=== PATIENT | male | born 1945 | race African-American/Black ===

== ENCOUNTER 2021-08-12 17:00 | Inpatient (IN) | payer MEDICARE, MEDICAID ==
[~2021-08-12] VITALS: Ht 172.7 cm; Wt 73.0 kg
[2021-08-12 17:39] LABS: BASOPHILS % 0.5 % (0.0-2.0); EOSINOPHILS % 3.9 % (0.0-5.0); HEMATOCRIT. 39.7 % (42.0-52.0); HEMOGLOBIN. 13.5 g/dL (14.0-18.0); LYMPHOCYTES % 12.2 % (20.0-50.0); MEAN CORPUSCULAR HEMOGLOBIN 29.1 pg (28.0-32.0); MEAN CORPUSCULAR VOLUME 85.8 fL (80.0-94.0); MEAN PLATELET VOLUME 8.7 fl (7.4-10.4); MONOCYTES % 6.3 % (2.0-8.0); NEUTROPHILS % 77.1 % (40.0-76.0); PLATELET 119 x1000/uL (130-400); RED BLOOD CELL COUNT 4.63 mill/uL (4.7-6.1); RED CELL DISTRIBUTION WIDTH 14.5 % (11.6-14.6)
[2021-08-12 17:49] LABS: CHLORIDE 106 mEq/L (98-107)
[2021-08-12] MEDS ORDERED: IOHEXOL-350 100 ML BOTTLE ONE (17:51)
[2021-08-12 17:52] LABS: ETHANOL BLOOD < 10 mg/dL
[2021-08-12 17:52] LABS: CLARITY URINE CLEAR (CLEAR); COLOR URINE YELLOW (YELLOW); KETONES URINE NEGATIVE (NEGATIVE); LEUKOCYTE ESTERASE URINE NEGATIVE (NEGATIVE); NITRITE URINE NEGATIVE (NEGATIVE); OCCULT BLOOD URINE TRACE (NEGATIVE); PROTEIN URINE NEGATIVE (NEGATIVE); SPECIFIC GRAVITY URINE 1.032 (1.005-1.030); UROBILINOGEN URINE 0.2 E.U./dL (0.2-1.0)
[2021-08-12 18:08] LABS: *AMPHETAMINES SCREEN URINE PRESUMTIVE POSITIVE (NEGATIVE); *BARBITURATES SCREEN URINE NEGATIVE (NEGATIVE); *BENZODIAZEPINES SCREEN URINE NEGATIVE (NEGATIVE)
[2021-08-12 18:09] LABS: *COCAINE SCREEN URINE PRESUMTIVE POSITIVE (NEGATIVE); CANNABINOID URINE SCREEN NEGATIVE (NEGATIVE); METHADONE URINE SCREEN NEGATIVE (NEGATIVE); OPIATES URINE SCREEN NEGATIVE (NEGATIVE); PHENCYCLIDINE URINE SCREEN NEGATIVE (NEGATIVE)
[2021-08-12] MEDS ORDERED: SODIUM CHLORIDE 0.9% 500 ML IV ONE (19:30)
[2021-08-12] MEDS ORDERED: ASPIRIN 81MG TABLET PO ONE (20:30)
[2021-08-12] MEDS ORDERED: CEFTRIAXONE 1 G PREMIX 50 ML IV ONE (20:30)
[2021-08-12] MEDS ORDERED: CLOPIDOGREL 75MG TABLET PO ONE (20:30)
[2021-08-12] MEDS ORDERED: AZITHROMYCIN 500MG/250ML 250 ML IV ONE (20:30)
[2021-08-13] VITALS: BP 157/95
[2021-08-13 00:36] VITALS: BP 157/95
[2021-08-13] MEDS ORDERED: DEXTROSE 50% WATER 50ML SYRINGE IV PRN (01:15)
[2021-08-13] MEDS ORDERED: CLONIDINE 0.1MG TABLET PO PRN (01:15)
[2021-08-13] MEDS ORDERED: ACETAMINOPHEN 325MG TABLET PO PRN (01:45)
[2021-08-13] MEDS: DEXT 5%/0.45% NACL KCL 20MEQ/L 1,000 ML IV SCH ×2 (05:39→19:25)
[2021-08-13] MEDS: NITROGLYCERIN OINT 1GM/INCH UDPKT TD SCH ×3 (05:39→19:20)
[2021-08-13] MEDS: BLOOD SUGAR DIAGNOSTIC STRIP TEST SCH ×4 (06:26→20:02)
[2021-08-13 08:00] VITALS: BP 179/109
[2021-08-13 08:14] LABS: CHLORIDE 107 mEq/L (98-107)
[2021-08-13] MEDS: INSULIN LISPRO 100 UNITS/ML SUBCUT SCH ×4 (08:20→20:39)
[2021-08-13 08:22] LABS: BASOPHILS % 0.5 % (0.0-2.0); EOSINOPHILS % 4.9 % (0.0-5.0); HEMATOCRIT. 41.1 % (42.0-52.0); HEMOGLOBIN. 14.2 g/dL (14.0-18.0); LYMPHOCYTES % 20.3 % (20.0-50.0); MEAN CORPUSCULAR HEMOGLOBIN 29.5 pg (28.0-32.0); MEAN CORPUSCULAR VOLUME 85.3 fL (80.0-94.0); MEAN PLATELET VOLUME 8.6 fl (7.4-10.4); MONOCYTES % 8.2 % (2.0-8.0); NEUTROPHILS % 66.1 % (40.0-76.0); PLATELET 140 x1000/uL (130-400); RED BLOOD CELL COUNT 4.82 mill/uL (4.7-6.1); RED CELL DISTRIBUTION WIDTH 14.4 % (11.6-14.6)
[2021-08-13 08:30] LABS: LDL CHOLESTEROL 74 mg/dL (5-100)
[2021-08-13 08:32] LABS: HDL CHOLESTEROL 60 mg/dL (40-59)
[2021-08-13] MEDS: HEPARIN 5000 UNITS/ML VIAL SUBCUT SCH ×2 (09:53→21:27)
[2021-08-13 12:00] VITALS: BP 154/103
[2021-08-13] MEDS: ASPIRIN 325MG EC TABLET PO SCH (13:52)
[2021-08-13] MEDS: CARVEDILOL 12.5MG TABLET PO SCH ×2 (13:53→21:27)
[2021-08-13] MEDS: CLOPIDOGREL 75MG TABLET PO SCH (14:10)
[2021-08-13 16:00] VITALS: BP 125/83
[2021-08-13 20:00] VITALS: BP 120/75
[2021-08-13] MEDS: ATORVASTATIN CALCIUM 40MG TABLET PO SCH (21:27)
[2021-08-14] VITALS: BP 109/61
[2021-08-14 04:00] VITALS: BP 110/70
[2021-08-14] MEDS: BLOOD SUGAR DIAGNOSTIC STRIP TEST SCH ×4 (05:11→20:12)
[2021-08-14] MEDS: NITROGLYCERIN OINT 1GM/INCH UDPKT TD SCH ×5 (05:40→23:56)
[2021-08-14] MEDS: INSULIN LISPRO 100 UNITS/ML SUBCUT SCH ×4 (05:49→21:00)
[2021-08-14 08:00] VITALS: BP 107/81
[2021-08-14] MEDS: HEPARIN 5000 UNITS/ML VIAL SUBCUT SCH ×2 (08:58→22:08)
[2021-08-14] MEDS: ASPIRIN 325MG EC TABLET PO SCH (08:59)
[2021-08-14] MEDS: CARVEDILOL 12.5MG TABLET PO SCH ×2 (08:59→22:09)
[2021-08-14] MEDS: CLOPIDOGREL 75MG TABLET PO SCH (08:59)
[2021-08-14] MEDS: DEXT 5%/0.45% NACL KCL 20MEQ/L 1,000 ML IV SCH (09:47)
[2021-08-14 12:00] VITALS: BP 113/65
[2021-08-14 16:00] VITALS: BP 103/69
[2021-08-14 20:00] VITALS: BP 138/82
[2021-08-14] MEDS: ATORVASTATIN CALCIUM 40MG TABLET PO SCH (22:09)
[2021-08-15] VITALS: BP 98/78
[2021-08-15] MEDS: DEXT 5%/0.45% NACL KCL 20MEQ/L 1,000 ML IV SCH ×3 (00:30→20:57)
[2021-08-15 05:00] VITALS: BP 115/81
[2021-08-15] MEDS: BLOOD SUGAR DIAGNOSTIC STRIP TEST SCH ×4 (05:34→20:56)
[2021-08-15] MEDS: NITROGLYCERIN OINT 1GM/INCH UDPKT TD SCH ×3 (05:34→17:37)
[2021-08-15] MEDS: INSULIN LISPRO 100 UNITS/ML SUBCUT SCH ×4 (05:37→20:57)
[2021-08-15 08:11] VITALS: BP 131/89
[2021-08-15] MEDS: HEPARIN 5000 UNITS/ML VIAL SUBCUT SCH ×2 (08:32→20:56)
[2021-08-15] MEDS: ASPIRIN 81MG TABLET PO SCH (08:32)
[2021-08-15] MEDS: CARVEDILOL 12.5MG TABLET PO SCH ×2 (08:32→20:56)
[2021-08-15] MEDS: CLOPIDOGREL 75MG TABLET PO SCH (08:32)
[2021-08-15 11:43] VITALS: BP 119/76
[2021-08-15] MEDS ORDERED: ASPI-1497 MT (15:52)
[2021-08-15] MEDS ORDERED: CLOP-31 MT (15:52)
[2021-08-15] MEDS ORDERED: HYDR-4134 MT (15:52)
[2021-08-15] MEDS ORDERED: ATOR80TA MT (15:52)
[2021-08-15 16:00] VITALS: BP 115/75
[2021-08-15 20:00] VITALS: BP 105/72
[2021-08-15] MEDS: ATORVASTATIN CALCIUM 40MG TABLET PO SCH (20:55)
[2021-08-16] VITALS: BP 141/36
[2021-08-16] MEDS: NITROGLYCERIN OINT 1GM/INCH UDPKT TD SCH ×4 (00:52→18:06)
[2021-08-16 04:00] VITALS: BP 136/67
[2021-08-16] MEDS: BLOOD SUGAR DIAGNOSTIC STRIP TEST SCH ×4 (06:09→21:12)
[2021-08-16] MEDS: INSULIN LISPRO 100 UNITS/ML SUBCUT SCH ×4 (06:10→21:00)
[2021-08-16 08:00] VITALS: BP 123/79
[2021-08-16] MEDS: CLOPIDOGREL 75MG TABLET PO SCH (08:59)
[2021-08-16] MEDS: HEPARIN 5000 UNITS/ML VIAL SUBCUT SCH ×2 (08:59→21:17)
[2021-08-16] MEDS: ASPIRIN 81MG TABLET PO SCH (08:59)
[2021-08-16] MEDS: CARVEDILOL 12.5MG TABLET PO SCH ×2 (09:00→21:00)
[2021-08-16 12:00] VITALS: BP 139/61
[2021-08-16] MEDS: DEXT 5%/0.45% NACL KCL 20MEQ/L 1,000 ML IV SCH (12:40)
[2021-08-16 16:00] VITALS: BP 127/67
[2021-08-16 20:00] VITALS: BP 101/65
[2021-08-16] MEDS: ATORVASTATIN CALCIUM 40MG TABLET PO SCH (21:15)
[2021-08-17] VITALS: BP 96/43
[2021-08-17] MEDS: DEXT 5%/0.45% NACL KCL 20MEQ/L 1,000 ML IV SCH ×2 (03:56→14:28)
[2021-08-17 04:00] VITALS: BP 101/58
[2021-08-17] MEDS: NITROGLYCERIN OINT 1GM/INCH UDPKT TD SCH ×4 (06:00→18:15)
[2021-08-17] MEDS: INSULIN LISPRO 100 UNITS/ML SUBCUT SCH ×4 (06:52→21:00)
[2021-08-17] MEDS: BLOOD SUGAR DIAGNOSTIC STRIP TEST SCH ×4 (06:52→21:00)
[2021-08-17 08:00] VITALS: BP 110/75
[2021-08-17] MEDS: CARVEDILOL 12.5MG TABLET PO SCH ×2 (09:00→22:24)
[2021-08-17] MEDS: HEPARIN 5000 UNITS/ML VIAL SUBCUT SCH ×2 (09:39→22:22)
[2021-08-17] MEDS: ASPIRIN 81MG TABLET PO SCH (09:39)
[2021-08-17] MEDS: CLOPIDOGREL 75MG TABLET PO SCH (09:39)
[2021-08-17 12:00] VITALS: BP 120/75
[2021-08-17] MEDS ORDERED: NALOXONE HCL 0.4MG/ML VIAL IV PRN (15:45)
[2021-08-17 16:00] VITALS: BP 127/74
[2021-08-17 17:03] LABS: BASOPHILS % 0.8 % (0.0-2.0); EOSINOPHILS % 8.2 % (0.0-5.0); HEMATOCRIT. 38.9 % (42.0-52.0); HEMOGLOBIN. 13.1 g/dL (14.0-18.0); LYMPHOCYTES % 22.6 % (20.0-50.0); MEAN CORPUSCULAR HEMOGLOBIN 28.9 pg (28.0-32.0); MEAN PLATELET VOLUME 8.1 fl (7.4-10.4); MONOCYTES % 8.2 % (2.0-8.0); NEUTROPHILS % 60.2 % (40.0-76.0); PLATELET 132 x1000/uL (130-400); RED BLOOD CELL COUNT 4.53 mill/uL (4.7-6.1); RED CELL DISTRIBUTION WIDTH 14.4 % (11.6-14.6)
[2021-08-17 17:08] LABS: CHLORIDE 109 mEq/L (98-107)
[2021-08-17 20:00] VITALS: BP 108/78
[2021-08-17] MEDS: HYDROCODONE/ACETAMINOPHEN 5/325MG TABLET PO PRN (22:23)
[2021-08-17] MEDS: ATORVASTATIN CALCIUM 40MG TABLET PO SCH (22:23)
[2021-08-18] VITALS: BP 87/51
[2021-08-18] MEDS: NITROGLYCERIN OINT 1GM/INCH UDPKT TD SCH ×4 (00:47→16:51)
[2021-08-18 04:00] VITALS: BP 101/63
[2021-08-18] MEDS: BLOOD SUGAR DIAGNOSTIC STRIP TEST SCH ×4 (05:41→21:31)
[2021-08-18] MEDS: INSULIN LISPRO 100 UNITS/ML SUBCUT SCH ×4 (05:55→21:00)
[2021-08-18] MEDS: ASPIRIN 81MG TABLET PO SCH (07:56)
[2021-08-18] MEDS: CLOPIDOGREL 75MG TABLET PO SCH (07:56)
[2021-08-18] MEDS: HYDROCODONE/ACETAMINOPHEN 5/325MG TABLET PO PRN (07:57)
[2021-08-18] MEDS: CARVEDILOL 12.5MG TABLET PO SCH ×2 (07:57→21:31)
[2021-08-18] MEDS: HEPARIN 5000 UNITS/ML VIAL SUBCUT SCH ×2 (07:58→21:30)
[2021-08-18 08:38] VITALS: BP 119/69
[2021-08-18 12:00] VITALS: BP 100/57
[2021-08-18 16:00] VITALS: BP 104/69
[2021-08-18] MEDS: ATORVASTATIN CALCIUM 40MG TABLET PO SCH (21:30)
[2021-08-19 04:00] VITALS: BP 114/72
[2021-08-19] MEDS: NITROGLYCERIN OINT 1GM/INCH UDPKT TD SCH ×4 (06:20→18:00)
[2021-08-19] MEDS: INSULIN LISPRO 100 UNITS/ML SUBCUT SCH ×4 (06:20→20:39)
[2021-08-19] MEDS: BLOOD SUGAR DIAGNOSTIC STRIP TEST SCH ×4 (06:20→20:39)
[2021-08-19 08:00] VITALS: BP 102/62
[2021-08-19] MEDS: CARVEDILOL 12.5MG TABLET PO SCH ×2 (09:00→20:24)
[2021-08-19] MEDS: CLOPIDOGREL 75MG TABLET PO SCH (09:07)
[2021-08-19] MEDS: ASPIRIN 81MG TABLET PO SCH (09:07)
[2021-08-19] MEDS: HEPARIN 5000 UNITS/ML VIAL SUBCUT SCH ×2 (09:07→20:24)
[2021-08-19 12:00] VITALS: BP 100/68
[2021-08-19 16:00] VITALS: BP 95/60
[2021-08-19 16:09] VITALS: BP 101/68
[2021-08-19] MEDS ORDERED: NA PHOS,M-B/NA PHOS,DI-BA ENEMA 118ML PR NR (17:00)
[2021-08-19] MEDS ORDERED: LACTULOSE 20G/30ML UDC PO NR (17:00)
[2021-08-19] MEDS ORDERED: BISACODYL 5MG TABLET PO NR (17:00)
[2021-08-19] MEDS ORDERED: DOCUSATE SODIUM 250MG CAPSULE PO NR (17:00)
[2021-08-19 20:00] VITALS: BP 118/75
[2021-08-19] MEDS: ATORVASTATIN CALCIUM 40MG TABLET PO SCH (20:23)
[2021-08-20] VITALS: BP 120/76
[2021-08-20 04:00] VITALS: BP 105/69
[2021-08-20] MEDS: NITROGLYCERIN OINT 1GM/INCH UDPKT TD SCH ×2 (05:07)
[2021-08-20] MEDS: BLOOD SUGAR DIAGNOSTIC STRIP TEST SCH (06:18)
[2021-08-20] MEDS: INSULIN LISPRO 100 UNITS/ML SUBCUT SCH (06:18)
== END 2021-08-20 10:20 | DRG 65 ==
LOC: ER 17:00 → EDBEDREQSVC 18:25 → EDBEDREQTM 18:25 → EDBEDREQ 18:25 → 8WST 20:31 → EDBEDREQTM 20:59 → EDBEDREQ 20:59 → ENRESERV 22:37
PROVIDERS: ADMIT Internal Medicine; ATTEND Internal Medicine
PROC: 4A10X4Z Monitoring of Central Nervous Electrical Activity, External Approach (ICD-10-PCS; principal; 2021-08-16)
DX: I63.9 Cerebral infarction, unspecified (principal); G81.94 Hemiplegia, unspecified affecting left nondominant side; I42.0 Dilated cardiomyopathy; I10 Essential (primary) hypertension; F14.10 Cocaine abuse, uncomplicated; F15.10 Other stimulant abuse, uncomplicated; I25.10 Atherosclerotic heart disease of native coronary artery without angina pectoris; R29.707 NIHSS score 7; D64.9 Anemia, unspecified; R47.1 Dysarthria and anarthria; E11.9 Type 2 diabetes mellitus without complications; G89.29 Other chronic pain; Z20.822 Contact with and (suspected) exposure to COVID-19; F17.210 Nicotine dependence, cigarettes, uncomplicated; Z79.899 Other long term (current) drug therapy; Z86.73 Personal history of transient ischemic attack (TIA), and cerebral infarction without residual deficits; Z95.1 Presence of aortocoronary bypass graft
CPT/HCPCS: 36415; 70496; 70498; 70551; 71045; 80048; 80053; 80061; 80305; 80320; 81003; 82962; 83036; 83605; 84484; 85025; 87426; 92610; 93005; 93306; 95816; 97110; 97116; 97162; 97166; 97530; 99291; C1893; J0456; J0696; J1644; J1815; J7040; Q9967; G0480